=== PATIENT | female | born 1980 | race Native Hawaiian/Other Pacific Islander ===

== ENCOUNTER → 2018-05-25 | Outpatient (CLI) | payer OTHER ==
--- NOTE | 2018-05-25 11:46 | XR ---
EXAMINATION TYPE: XR thoracic spine complete DATE OF EXAM: 05/25/2018 COMPARISON: NONE HISTORY: Thoracic spine pain TECHNIQUE: Three-view thoracic spine FINDINGS: There are 12 thoracic type vertebral bodies. Pedicles are intact. Disc heights are preserve d. Vertebral body heights are preserved. Subtle scoliosis lower thoracic region can be positional. IMPRESSION: 1. No acute osseous abnormality thoracic spine.
--- NOTE | 2018-05-25 11:47 | XR ---
EXAMINATION TYPE: XR lumbosacral spine min 4V DATE OF EXAM: 05/25/2018 COMPARISON: NONE HISTORY: Low back pain TECHNIQUE: Lumbar spine is examined in 4 views FINDINGS: There 5 lumbar-type vertebral bodies. The pedicles are intact. Facets are normal. Disc height and tina tebral body heights are preserved. IMPRESSION: 1. Normal lumbar spine.
== END | disposition home or self-care (01) ==
LOC: RADXRYALE 10:30
PROVIDERS: ATTEND Nurse Practitioner
DX: M54.5 Low back pain (principal); M54.6 Pain in thoracic spine
CPT/HCPCS: 72072; 72110

== ENCOUNTER → 2019-03-01 | Outpatient (CLI) | payer OTHER ==
--- NOTE | 2019-03-03 09:06 | MM ---
Reason for exam: screening (asymptomatic). Last mammogram was performed 2 years and 11 months ago. History: Family history of premenopausal breast cancer in mother at age 44 and breast cancer in 2 maternal aunts at age 40. Took hormonal contraceptives for 8 years. Physical Findings: A clinical breast exam by your physician is recommended on an annual basis and results should be correlated with mammographic findings. MG Screening Mammo w CAD Bilateral CC and MLO view(s) were taken. Prior study comparison: April 08, 2016, bilateral MG screening mammo w CAD. The breast tissue is heterogeneously dense. This may lower the sensitivity of mammography. No significant changes when compared with prior studies. ASSESSMENT: Negative, BI-RAD 1 RECOMMENDATION: Routine screening mammogram of both breasts in 1 year. Patient should continue monthly self breast exams. A negative report should not preclude additional follow up of suspicious palpable abnormalities.
== END | disposition home or self-care (01) ==
LOC: RADMAMWWP 08:45
PROVIDERS: ATTEND Family Medicine
DX: Z12.31 Encounter for screening mammogram for malignant neoplasm of breast (principal)
CPT/HCPCS: 77067

== ENCOUNTER → 2020-10-04 | Outpatient (CLI) | payer OTHER ==
--- NOTE | 2020-10-05 12:32 | MM ---
Reason for exam: screening (asymptomatic). Last mammogram was performed 1 year and 7 months ago. History: Family history of premenopausal breast cancer in mother at age 44 and breast cancer in 2 maternal aunts at age 40. Took hormonal contraceptives for 8 years. Physical Findings: A clinical breast exam by your physician is recommended on an annual basis and results should be correlated with mammographic findings. MG Screening Mammo w CAD Bilateral CC and MLO view(s) were taken. Prior study comparison: March 01, 2019, bilateral MG screening mammo w CAD. April 08, 2016, bilateral MG screening mammo w CAD. The breast tissue is heterogeneously dense. This may lower the sensitivity of mammography. No significant changes when compared with prior studies. ASSESSMENT: Benign, BI-RAD 2 RECOMMENDATION: Routine screening mammogram of both breasts in 1 year.
== END | disposition home or self-care (01) ==
LOC: RADMAMWWP 08:20
PROVIDERS: ATTEND Family Medicine
DX: Z12.31 Encounter for screening mammogram for malignant neoplasm of breast (principal)
CPT/HCPCS: 77067

== ENCOUNTER → 2022-11-26 | Outpatient (CLI) | payer OTHER ==
--- NOTE | 2022-11-27 08:04 | MM ---
Reason for Exam: Screening (asymptomatic). Last mammogram was performed 2 year(s) and 1 month(s) ago. Patient History: Menarche at age 16. First Full-Term at age 26. Premenopausal. Patient used Hormonal Contraceptives for 8 years. Maternal aunt had breast cancer, age 40. Maternal aunt had breast cancer, age 40. Mother had breast cancer, age 44. Risk Values: Emily 5 year model risk: 1.0%. NCI Lifetime model risk: 16.9%. Prior Study Comparison: 04/08/2016 Bilateral Screening Mammogram, [facility]. 03/01/2019 Bilateral Screening Mammogram, [facility]. 10/04/2020 Bilateral Screening Mammogram, [facility]. Tissue Density: The breast tissue is heterogeneously dense. This may lower the sensitivity of mammography. Findings: Analyzed By CAD. There is no suspicious group of microcalcifications or new suspicious mass in either breast. Overall Assessment: Negative, BI-RAD 1 Management: Screening Mammogram of both breasts in 1 year. A clinical breast exam by your physician is recommended on an annual basis and results should be correlated with mammographic findings. [facility] will attempt to contact patient to return for supplemental views and ultrasound if indicated. Electronically signed and approved by: Ham Knox DO
== END | disposition home or self-care (01) ==
LOC: RADMAMWWP 08:19
PROVIDERS: ATTEND Family Medicine
DX: Z12.31 Encounter for screening mammogram for malignant neoplasm of breast (principal); Z80.3 Family history of malignant neoplasm of breast
CPT/HCPCS: 77067

== ENCOUNTER → 2023-11-27 | Outpatient (CLI) | payer OTHER ==
--- NOTE | 2023-12-01 15:41 | MM ---
Reason for Exam: Screening (asymptomatic). Last screening mammogram was performed 12 month(s) ago. Patient History: Menarche at age 16. First Full-Term at age 26. Premenopausal. Patient used Hormonal Contraceptives for 8 years. Maternal aunt had breast cancer, age 40. Maternal aunt had breast cancer, age 40. Mother had breast cancer, age 44. Mother tested for BRCA1 outcome was negative. Risk Values: Emily 5 year model risk: 1.1%. NCI Lifetime model risk: 16.7%. Prior Study Comparison: 03/01/2019 Bilateral Screening Mammogram, [facility]. 10/04/2020 Bilateral Screening Mammogram, [facility]. 11/26/2022 Bilateral MG screening mammo w CAD, [facility]. Tissue Density: The breast tissue is heterogeneously dense. This may lower the sensitivity of mammography. Findings: Analyzed By CAD. Unchanged axillary tail lymph nodes on the left. Focal asymmetry upper outer quadrant left breast is more defined. This may represent superimposition shadow but further evaluation is recommended. Otherwise, no significant change. Overall Assessment: Incomplete: need additional imaging evaluation, BI-RAD 0 Management: Special View Mammogram of the left breast. Diagnostic Breast Ultrasound of the left breast. . Electronically signed and approved by: Stephanie Malagon M.D. Radiologist
== END | disposition home or self-care (01) ==
LOC: RADMAMWWP 08:32
PROVIDERS: ATTEND Family Medicine
DX: Z12.31 Encounter for screening mammogram for malignant neoplasm of breast (principal); Z80.3 Family history of malignant neoplasm of breast
CPT/HCPCS: 77063; 77067

== ENCOUNTER → 2023-12-04 | Outpatient (CLI) | payer OTHER ==
--- NOTE | 2023-12-04 11:25 | MM ---
Reason for Exam: Additional evaluation requested from abnormal screening. Last screening mammogram was performed less than 1 month ago. Patient History: Menarche at age 16. First Full-Term at age 26. Premenopausal. Patient has history of breast feeding. Patient used Hormonal Contraceptives for 8 years. Maternal aunt had breast cancer, age 40. Maternal aunt had breast cancer, age 40. Mother had breast cancer, age 44. Mother tested for BRCA1 outcome was negative. Last menstrual period: 11/24/2023 Risk Values: Emily 5 year model risk: 1.1%. NCI Lifetime model risk: 16.7%. Prior Study Comparison: 04/08/2016 Bilateral Screening Mammogram, [facility]. 03/01/2019 Bilateral Screening Mammogram, [facility]. 10/04/2020 Bilateral Screening Mammogram, [facility]. 11/26/2022 Bilateral MG screening mammo w CAD, [facility]. 11/27/2023 Bilateral MG 3D screening mammo w/cad, [facility]. Tissue Density: Left: The breast tissue is heterogeneously dense. This may lower the sensitivity of mammography. Findings: Analyzed By CAD. Pattern appears stable. No persistent suspicious density or distortion evident on compression views. Medial lateral view appears normal. Persistent focal density through multiple projections is not identified. No suspicious groups of microcalcifications, spiculated or lobular masses, architectural distortion or other secondary signs of malignancy are mammographically apparent. Overall Assessment: Benign, BI-RAD 2 Management: Screening Mammogram of both breasts in 1 year. A negative mammogram report should not preclude additional follow up of suspicious palpable abnormalities. Patient should continue monthly self breast exam. A clinical breast exam by your physician is recommended on an annual basis and results should be correlated with mammographic findings. Electronically signed and approved by: Tereso Noble D.O. Radiologis
== END | disposition home or self-care (01) ==
LOC: RADMAMWWP 10:28
PROVIDERS: ATTEND Family Medicine
DX: R92.332 Mammographic heterogeneous density, left breast (principal); R92.2 Inconclusive mammogram; Z80.3 Family history of malignant neoplasm of breast
CPT/HCPCS: 77061; 77065

== ENCOUNTER → 2025-03-07 | Outpatient (CLI) | payer OTHER ==
--- NOTE | 2025-03-07 17:18 | MM ---
Reason for Exam: Screening (asymptomatic). Last mammogram was performed 1 year(s) and 4 month(s) ago. Patient History: Menarche at age 16. First Full-Term at age 26. Premenopausal. Patient has history of breast feeding. Patient used Hormonal Contraceptives for 8 years. Maternal aunt had breast cancer, age 40. Maternal aunt had breast cancer, age 40. Mother had breast cancer, age 44. Mother tested for BRCA1 outcome was negative. Risk Values: Emily 5 year model risk: 1.2%. NCI Lifetime model risk: 16.6%. Prior Study Comparison: 11/26/2022 Bilateral MG screening mammo w CAD, [facility]. 11/27/2023 Bilateral MG 3D screening mammo w/cad, [facility]. 12/04/2023 Left MG 3D work up w/cad , [facility]. Tissue Density: The breasts are heterogeneously dense, which may obscure small masses. Findings: Analyzed By CAD. Chronic nodularity on the left. Unchanged asymmetric densities on the left. Unchanged single linear calcification upper outer quadrant right breast. There is no suspicious group of microcalcifications or new suspicious mass in either breast. Overall Assessment: Benign, BI-RAD 2 Management: Screening Mammogram of both breasts in 1 year. Patient should continue monthly self-breast exams. A clinical breast exam by your physician is recommended on an annual basis. This exam should not preclude additional follow-up of suspicious palpable abnormalities. Note on Emily scores and lifetime risk: 1. A Emily score greater than 3% is considered moderate risk. If this is the case, consider specialist referral to assess eligibility for a risk reducing agent. 2. If overall lifetime risk for the development of breast cancer is 20% or higher, the patient may qualify for future screening with alternating mammogram and breast MRI. [facility], , 03/07/2025 5:15 PM. Electronically signed and approved by: Stephanie Malagon M.D. Radiologist
== END | disposition home or self-care (01) ==
LOC: RADMAMWWP 16:31
PROVIDERS: ATTEND Family Medicine
DX: Z12.31 Encounter for screening mammogram for malignant neoplasm of breast (principal); R92.333 Mammographic heterogeneous density, bilateral breasts; Z92.0 Personal history of contraception; Z80.3 Family history of malignant neoplasm of breast
CPT/HCPCS: 77063; 77067